=== PATIENT | female | born 1980 | race Caucasian/White ===

== ENCOUNTER → 2017-05-04 | Outpatient (CLI) | payer OTHER | LOC: FIMAGING 07:18 | PROVIDERS: ATTEND Advanced Practice Midwife | DX: O09.512 Supervision of elderly primigravida, second trimester (principal); Z3A.20 20 weeks gestation of pregnancy ==

== ENCOUNTER 2017-06-14 17:42 | Observation (INO) | payer OTHER ==
--- NOTE | 2017-06-14 18:30 | OBPROG ---
Labor Progress Note Assessment/Plan: Assessment:no contractions on monitor speculum exam ffn affirm wet prep negative fhr cat 1 fhr nst reactive at 26 weeks iv placed cervix long thick closed high posterior soft Plan:iv fluids speculum exam ffn affirm exam 06/14/17 18:28 Subjective/Intrapartum Course: 06/14/17 18:27 Began feeling cramping at noon. Regular in timing for long period of time today. noon to 4p today denies leaking, bleeding, cramping. States feeling movement. - SVE Dilation (cm): 0 Effacement (%): 0 Station: -3 Membranes: Intact - Contraction Pattern Assessment Current Contraction Pattern: Irregular - FHR Assessment Romeo FHR (bpm): 135 FHR Pattern Variability: Moderate FHR Category: 1 - Physical Exam General Appearance: WD/WN, alert, no apparent distress Respiratory: chest non-tender, lungs clear, normal breath sounds Cardiac/Chest: regular rate, rhythm Abdomen: normal bowel sounds Extremities: normal range of motion, Dieter's sign (negative bilaterally) DTR- Lower Extremities: Knee (R): 1+, Knee (L): 1+ (no clonus) Skin: normal color, warm/dry Neuro/Psych: no motor/sensory deficits, alert, normal mood/affect, oriented x 3 ICD10 Worksheet Patient Problems: Problems Problem Status Onset Delivery normal Acute
[2017-06-14] MEDS ORDERED: TERBUTALINE SULFATE 1 MG/ML VIAL SC ONE (19:09)
--- NOTE | 2017-06-14 19:17 | GHP ---
[f rep st] HISTORY AND PHYSICAL DATE OF ADMISSION: 06/14/2017 HISTORY OF PRESENT ILLNESS: The patient is a 37-year-old 2, para 1, with an EDC of 8, who comes in at 26 weeks gestational age with complaints of contractions since noon on 06/14/2017. Denies bleeding, leaking. States feeling positive movement. Cramping since noon to when she came into labor and delivery, regular, painful. Was at work, attempted to drink a liter of fluid. States felt better and then contractions came back as she was driving home after work. The patient c alled to [facility] and was instructed to come to labor and delivery. PAST MEDICAL HISTORY: The patient has a history of anemia. PAST SURGICAL HISTORY: Left knee surgery in 1998, tonsillectomy and adenoidectomy at age 7. MAJOR ACCIDENTS: Sports injury, left patella injury in high school. FAMILY HISTORY: Noncontributory. SOCIAL HISTORY: The patient is . Denies tobacco use. Denies drug use. GYNECOLOGICAL HISTORY: Previous LEEP x2. OLI 3 in 2015, OLI 2 in 2004. Previous use of Mirena. Hi story of OCP use. PRESENT HISTORY: The patient is rubella nonimmune, AMA, a previa. Cervical length was don e because of the LEEP x2. PAST HISTORY: Term delivery at 7 pounds 7 ounces. LABS: The patient is A positive, antibody negative. RPR is nonreactive. Rubella is nonimmune. Hep atitis is negative. HIV is negative. Standard panel was negative. TSH was 1.1 on 02/27/2017. Pap, gonorrhea, and chlamydia are negative. Verifi was negative. At this time, the patient has not yet taken the 1-hour GTT. PHYSICAL ASSESSMENT: GENERAL: The patient is awake, alert, oriented x3. LUNGS: Clear bilaterally. ABDOMEN: Bowel sounds are positive in all 4 quadrants. EXTREMITIES: DTRs are 1+ bilaterally. PE LVIC: Cervix long, thick, closed, high, but soft. No presenting part in the pelvis. On admit to labor and delivery, placed on the monitor. No contractions were noted at that time. FFN was collected. Wet prep was negative. Affirm was sent. ALLERGIES: The patient is not allergic to any medications. MEDICATIONS: The only medications the patient is taking are vitamins with DHA. PLAN OF CARE: IV fluids 1 L x1. Wait for FFN results. Consult physician, Dr. Jaylene Avendaño, as need ed for plan of care. /[id number]/MODL
[2017-06-14 19:32] VITALS: BP 117/61; PULSE 74
== END 2017-06-14 22:05 | disposition home or self-care (01) ==
LOC: FLD 17:42
PROVIDERS: ADMIT Advanced Practice Midwife; ATTEND Advanced Practice Midwife
DX: Z34.92 Encounter for supervision of normal pregnancy, unspecified, second trimester (principal); Z3A.26 26 weeks gestation of pregnancy
CPT/HCPCS: G0378 ×2; J3105

== ENCOUNTER 2017-09-01 12:52 | Observation (INO) | payer OTHER ==
--- NOTE | 2017-09-01 15:27 | GHP ---
[f rep st] PREOP HISTORY AND PHYSICAL DATE OF ADMISSION: 09/01/2017 ADMITTING DIAGNOSIS: Intrauterine at 37 and 57 weeks gestation for preeclampsia evaluation and prolonged monitoring. HISTORY OF PRESENT ILLNESS: The patient is a 37-year-old, 2, para 1-0-0-1, with a last menst rual period of 12/10/2016 and an EDC of 09/17/2017, confirmed by an 8-week ultrasound. She has had g ood care at [facility] since registration at 8 weeks gestation. Her risk factors include advanced maternal age. She had normal testing in this and aayush l ultrasound. She has a history of a LEEP x2. She had normal cervical length ultrasounds in the 1st and 2nd trimesters. She had a placenta previa that resolved, and she has developed a placenta previ a that resolved. Over the last 2 weeks, patient has developed some increasing symptoms of preeclamps ia. She has had episodes of severe headaches lasting a couple of days that have waxed and waned in i ntensity over the last few days. Currently, does not have a headache. She has had episodes of tunne l vision and scotomata, which also have waxed and waned somewhat with her headaches. She continues t o have increasing contractions which are increasing in intensity and frequency that have come and chilo e, and she just generally reports not feeling well. She was evaluated at [facility] on and found to have normal blood pressures that ranged 110s-119 over 50s to 60s. She had labs done that were normal and negative for preeclampsia. Platelets were 229. BUN and creatinine are 6 and 0. 6, uric acid 4.8, LDH 383, AST 19, ALT 30. Urine random creatinine was 28.9. Total protein was 16, given a ratio of 0.553. She was evaluated at [facility] today, had continued to have normal blood pressures, had a nonstress test that had a deceleration with contraction and was not reactive. She was sent to Labor and Delivery for prolonged monitoring. Currently, she denies headache or scotomata, just generally i s having painful contractions, very uncomfortable, and feels dizzy and lightheaded and does not feel well. She has some heartburn, but no right upper quadrant pain, and has had good movement sinc e she has been evaluated in Labor and Delivery. She continues to have irregular contractions. No le akage of fluid or vaginal bleeding. OBJECTIVE: Blood pressures here on Labor and Delivery 110/56, 115/69, 116/73, 117/67, and 119/68. F etal heart tones are 130s, reactive, moderate variability, Category I, no decelerations at all. She is precious irregularly. Her cervix was checked, and she is 3, 80%, -2, and baby is cephalic. Th e patient was evaluated here and had an ultrasound. Estimated weight was 3305 g, 94th percenti le. MARY KATE was 10.9, MVP was 3.2. We discussed her signs and symptoms of preeclampsia, as well as the elevated P/C ratio without elevat ed blood pressures or any signs of distress. Because her symptoms are transient and generally feels better now, she is not meeting criteria for induction of labor secondary to preeclampsia, but w e will watch her closely as she is at risk for developing that. The patient will discharge home [facility] with labor precautions, and instructions to call for headache, scotomata, right upper quadrant pain or active labor symptoms or leakage of fluid. She is to be evaluated in the office on Wednesday for a nonstress test and a return OB visit, and if she does not develop signs and symptoms of preeclampsia, she wishes to be delivered by 39 weeks. /[id number]/MODL
== END 2017-09-01 15:10 | disposition home or self-care (01) ==
LOC: FLD 12:52
PROVIDERS: ADMIT Obstetrics & Gynecology; ATTEND Obstetrics & Gynecology
DX: O99.89 Other specified diseases and conditions complicating pregnancy, childbirth and the puerperium (principal); O09.513 Supervision of elderly primigravida, third trimester; Z3A.37 37 weeks gestation of pregnancy
CPT/HCPCS: 76815; G0378

== ENCOUNTER 2017-09-10 06:00 | Inpatient (IN) | payer OTHER ==
[2017-09-10] MEDS ORDERED: OLIVE OIL 118 ML BTL MISC PRN (06:32)
[2017-09-10] MEDS ORDERED: OXYTOCIN 20 UNIT in LR 1,000 ML IV PRN (06:32)
[2017-09-10] MEDS ORDERED: LR 1,000 ML IV PRN ×2 (06:32→09:03)
[2017-09-10] MEDS ORDERED: EPSOM SALT 454 GM TP PRN (06:32)
[2017-09-10] MEDS ORDERED: TERBUTALINE SULFATE 1 MG/ML VIAL IV PRN (06:32)
[2017-09-10] MEDS ORDERED: MISOPROSTOL 200 MCG TAB PR PRN (06:32)
[2017-09-10] MEDS ORDERED: AMPICILLIN SODIUM 1 GM in NS 50 ML IV SCH ×2 (06:45→07:34)
[2017-09-10] MEDS ORDERED: AMPICILLIN SODIUM 2 GM in STERILE WATER INJ 25 ML IV ONE (07:00)
[2017-09-10 07:52] LABS: PLATELET COUNT 239 10^3/uL (150-400)
--- NOTE | 2017-09-10 09:02 | PDGENHP ---
History & Physical Chief Complaint: Elective IOL, 39wks, visual scotomata History of Present Illness: 37 yo presents for elective IOL today at 39w0d. Was seen in clinic earlier this week and althought BP has been normal she was had new visual scotomata, vague FAIR. Discussed w MFM at 37 wks they rec' d NSTs, AFIs and IOL at 39 wks. Overall uncomplicated 2nd - first was son Caren, had a fast but rather traumatic vaginal delivery w/ episiotomy and felt that she had a really rough recovery from that. Very much wanted to avoid episiotomy and . AMA at age 37 and also h/o LEEP x 2 (normal CLUS). Most recent LEEP 03/2016. She did have previa that resolved on subsequent scans - no bleeding. Rubella low-immune. NIPT and standard panel normal - XY male. Pertinent Past, Social, Family History: AMA, H/o LEEP x 2, Rubella low-immune. Mom was HepC pos from blood transfusion and hypothyroid (pt tested and normal TSH Fall 2016) Lab Data & Imaging Review 09/10/17 07:40 WBC 9.19 10^3/uL (3.80-9.50) 09/10/17 07:40 RBC 3.97 10^6/uL (4.18-5.33) L 09/10/17 07:40 Hgb 12.2 g/dL (12.6-16.3) L 09/10/17 07:40 Hct 36.4 % (38.0-47.0) L 09/10/17 07:40 MCV 91.7 fL (81.5-99.8) 09/10/17 07:40 MCH 30.7 pg (27.9-34.1) 09/10/17 07:40 MCHC 33.5 g/dL (32.4-36.7) 09/10/17 07:40 RDW 13.6 % (11.5-15.2) 09/10/17 07:40 Plt Count 239 10^3/uL (150-400) 09/10/17 07:40 MPV 10.6 fL (8.7-11.7) 09/10/17 07:40 Neut % (Auto) 75.9 % (39.3-74.2) H 09/10/17 07:40 Lymph % (Auto) 17.2 % (15.0-45.0) 09/10/17 07:40 Noble % (Auto) 5.2 % (4.5-13.0) 09/10/17 07:40 Eos % (Auto) 1.2 % (0.6-7.6) 09/10/17 07:40 Baso % (Auto) 0.2 % (0.3-1.7) L 09/10/17 07:40 Nucleat RBC Rel Count 0.0 % (0.0-0.2) 09/10/17 07:40 Absolute Neuts (auto) 6.97 10^3/uL (1.70-6.50) H 09/10/17 07:40 Absolute Lymphs (auto) 1.58 10^3/uL (1.00-3.00) 09/10/17 07:40 Absolute Monos (auto) 0.48 10^3/uL (0.30-0.80) 09/10/17 07:40 Absolute Eos (auto) 0.11 10^3/uL (0.03-0.40) 09/10/17 07:40 Absolute Basos (auto) 0.02 10^3/uL (0.02-0.10) 09/10/17 07:40 Absolute Nucleated RBC 0.00 10^3/uL (0-0.01) 09/10/17 07:40 Immature Gran % 0.3 % (0.0-1.1) 09/10/17 07:40 Immature Gran # 0.03 10^3/uL (0.00-0.10) 09/10/17 07:40 Patient ABO/Rh A POSITIVE 09/10/17 07:40 Antibody Screen NEGATIVE 09/10/17 07:40 Blood type A pos, Ab negative, RPR neg, Rubella LOW-IMMUNE, Hep B neg, HIV neg, GC/C neg, GBS POSITIVE Labor Progress Note Subjective/Intrapartum Course: Objective: 09/10/17 07:40 Patient ABO/Rh A POSITIVE 09/10/17 07:40 - SVE Dilation (cm): 3 Effacement (%): 75 Station: -2 (In clinic 09/07/17) Membranes: Intact - Contraction Pattern Assessment Current Contraction Pattern: Irregular - FHR Assessment Romeo FHR (bpm): 130 FHR Pattern Variability: Moderate FHR Category: 1 - AP Antepartum Course: Assessment & Plan Assessment: 37yo at 39w0d here for elective IOL, with recent visual scotomata and sx concerning for pre-eclampsia, but no formal dx. GBS positive. IOL: Ampicillin on admission, will start Pitocin 2 hrs after that, then AROM once in regular pattern. PIH: Will check labs on admission, monitor BP. Rubella Low-immune: Will need MMR PP. A positive, GBS positive.
[2017-09-10] MEDS ORDERED: AMMONIA AROMATIC 1 EACH AMP IH PRN (09:03)
[2017-09-10] MEDS ORDERED: LR 500 ML IV PRN (09:48)
[2017-09-10] MEDS ORDERED: OXYTOCIN 30 UNIT in NS 500 ML IV SCH (10:00)
[2017-09-10] MEDS ORDERED: TERBUTALINE SULFATE 1 MG/ML VIAL ONE (10:05)
[2017-09-10] MEDS ORDERED: OLIVE OIL 118 ML BTL ONE (10:05)
[2017-09-10] MEDS ORDERED: AMMONIA AROMATIC 1 EACH AMP IH ONE (10:05)
[2017-09-10] MEDS ORDERED: LIDOCAINE 1% 300 MG/30 ML SDV ONE (10:05)
[2017-09-10] MEDS ORDERED: OXYTOCIN 10 UNIT/ML VIAL ONE (10:06)
[2017-09-10] MEDS: AMPICILLIN SODIUM 1 GM in STERILE WATER INJ 15 ML IV SCH ×3 (12:33→20:46)
--- NOTE | 2017-09-10 18:54 | OBDEL ---
Info Type: Vaginal Presentation at Delivery: Vertex L&D Analgesia/Anesthesia Type: None, Local GBS+: Yes (Multiple doses of Ampicillin) Antibiotic Used for + GBS: Ampicillin Intrapartum Medications: Generic Name Dose Route Start Last Admin Trade Name Freq PRN Reason Stop Dose Admin Ampicillin Sodium 1 gm/ 15 mls @ 60 mls/hr 09/10/17 10:00 09/10/17 12:33 Sterile Water IV 10/10/17 09:59 15 mls Q4 JOSE ALBERTO Administration Oxytocin 30 unit/ Sodium 503 mls @ 0 mls/hr 09/10/17 10:00 09/10/17 10:12 Chloride IV 03/09/18 09:59 503 mls CONT JOSE ALBERTO Administration Protocol Per Protocol Discontinued Medications Generic Name Dose Route Start Last Admin Trade Name Freq PRN Reason Stop Dose Admin Ampicillin Sodium 1 gm/ Sodium 50 mls @ 100 mls/hr 09/10/17 06:45 09/10/17 13 :52 Chloride IV 09/10/17 07:44 Not Given Q30M JOSE ALBERTO Protocol Ampicillin Sodium 2 gm/ 25 mls @ 100 mls/hr 09/10/17 07:00 09/10/17 08:11 Sterile Water IV 09/10/17 07:14 25 mls ONCE ONE Administration - Hospital Course Intrapartum: Intrapartum Induction started with abx, then 2 hrs later Pitocin. 3cm initially. AROM at 4cm. Made fast progress to complete over 3-4 hours. Ultimately pushed for about 90 minutes. A lot of back pain with pushing. Indications for Delivery: Elective (Concern for PIH sx without diagnosis of PIH) Vaginal Delivery - Delivery Provider Delivery Physician/CNM: Mihir Hand - Labor and Delivery Onset of Contractions Type: Augmented Rupture of Membranes Type: Artificial Amniotic Fluid Color: Clear Non-surgical Procedures: Amniotomy Laceration: 2nd Degree Repair: 3-0 Vaginal Sponge Count Correct: Yes Vaginal Needle Count Correct: Yes Vaginal Sweep Performed: Yes EBL: 300 Delivery Events: None Delivery Comment: Induction began with Ampicillin. 2 hours later began Pitocin. AROM with clear fluid at 4cm. Made normal/fast progress to complete after 3-4 hours. No epidural. Reassuring tracing during stage I. Pushed for approximately 90 minutes with baby in direct OA position. Ultimately delivered over second degree perineal lac. Head delivered easily, left shoulder anterior. Baby up to mom's chest. Mouth suctioned, delayed cord clamping for approximately 2 minutes. Cord clamped and cut. Placenta did not deliver spontaneously for 30 minutes and I needed to put substantial traction on the cord, ultimately delivered completely intact without my having to reach up and manually extract. Inspected on the back table, complete/intact. 2nd degree lac repaired with 3- 0 vicryl after injecting local. Mom and baby ultimately doing well in room. Baby not yet weighed. Cord Gases: Not collected - Medications Labor Augmentation/Induction Methods Used: Pitocin Edmond Data VASQUEZ: 09/17/17 Gestational Age: 39 week(s) and 0 day(s) Romeo Delivery Date: 09/10/17 Delivery Time: 18:01 Sex of : Male (Reinier Perez) Score (1 Min): 8 Score (5 Min): 9 ICD10 Worksheet Patient Problems: Problems Problem Status Onset AMA (advanced maternal age) multigravida 35+ Acute Encounter for induction of labor Acute H/O LEEP Acute Positive GBS test Acute Vaginal delivery Acute - ICD10 Problem Qualifiers (1) Encounter for induction of labor (2) Vaginal delivery (3) AMA (advanced maternal age) multigravida 35+ (4) H/O LEEP (5) Positive GBS test
[2017-09-10] MEDS: IBUPROFEN 600 MG TAB PO PRN (19:14)
[2017-09-10] MEDS ORDERED: DOCUSATE SODIUM 100 MG CAP PO PRN (20:57)
[2017-09-10] MEDS ORDERED: MAGNESIUM HYDROXIDE 30 ML UDCUP PO PRN (21:01)
[2017-09-10] MEDS ORDERED: LACTULOSE 20 GM/30 ML UDCUP PO PRN (21:01)
[2017-09-10] MEDS ORDERED: HYDROCODONE/APAP 5/325 TAB PO PRN (21:01)
[2017-09-10] MEDS ORDERED: POLYETHYLENE GLYCOL 3350 17 GM PKT PO PRN (21:01)
[2017-09-10] MEDS ORDERED: BISACODYL 10 MG SUPP PR PRN (21:01)
[2017-09-10] MEDS ORDERED: SIMETHICONE 80 MG TAB CHEW PO PRN (21:01)
[2017-09-10] MEDS ORDERED: ACETAMINOPHEN 325 MG TAB PO PRN (21:01)
[2017-09-10] MEDS ORDERED: HYDROCORTISONE 0.5% CREAM TP PRN (21:01)
[2017-09-11] MEDS: SENNOSIDES/DOCUSATE SODIUM TAB PO SCH ×3 (01:27→21:07)
[2017-09-11] MEDS: IBUPROFEN 600 MG TAB PO PRN ×4 (01:53→21:07)
[2017-09-11] MEDS ORDERED: MEASLES,MUMPS&RUBELLA VACC/PF 0.5 ML VIAL SC ONE ×2 (08:21→19:30)
[2017-09-11] MEDS: IRON POLYSAC/IRON HEME 28 MG TAB PO SCH ×2 (08:53→21:07)
--- NOTE | 2017-09-11 10:35 | OBPP ---
Progress Note Assessment/Plan: Assessment: PPD 1 s/p +GBS Plan: routine care 09/11/17 10:32 Subjective/ Course: 09/11/17 10:33 Pt doing well. Strong cramps with BF - tolerable with ibu. bottom not too sore. urinating fine. bld is reduced quite a bit. Baby is latching well. Objective: 09/11/17 06:25 Patient ABO/Rh A POSITIVE 09/10/17 07:40 Temp Pulse Resp BP Pulse Ox 36.6 C 89 17 114/72 96 09/11/17 08:00 09/11/17 08:00 09/11/17 08:00 09/11/17 08:00 09/11/17 08:00 Uterine Position/Fundal Height: Umbilicus -1 Uterine Tone: Firm Physical Exam - Physical Exam Abdomen: non-tender, soft, other (FF at umb -1) Extremities: non-tender, pedal edema (mild) Skin: normal color, warm/dry Neuro/Psych: alert, normal mood/affect
[2017-09-11 19:31] VITALS: RESP 16; O2SAT 95
[2017-09-12] MEDS: IBUPROFEN 600 MG TAB PO PRN ×2 (04:03→10:12)
[2017-09-12] MEDS: IRON POLYSAC/IRON HEME 28 MG TAB PO SCH (09:17)
[2017-09-12] MEDS: SENNOSIDES/DOCUSATE SODIUM TAB PO SCH (10:36)
[2017-09-12 10:46] VITALS: BP 110/66; PULSE 81; TEMP 97.5
[2017-09-12] MEDS ORDERED: FLU VACC QS 2017-18 (3YR+)/PF 0.5 ML SYR (FLUARIX QUAD) IM ONE ×2 (11:37→14:30)
--- NOTE | 2017-09-12 13:10 | OBGCSDC ---
General Delivery Information - General Info : 2 Para: 2 Abortions: 0 Type: Vaginal L&D Analgesia/Anesthesia Type: Local Admission Date: 09/10/17 Labs: Patient ABO/Rh A POSITIVE 09/10/17 07:40 Hct 30.8 % (38.0-47.0) L 09/11/17 06:25 - Hospital Course Antepartum: Antepartum Intrapartum: Intrapartum Induction started with abx, then 2 hrs later Pitocin. 3cm initially. AROM at 4cm. Made fast progress to complete over 3-4 hours. Ultimately pushed for about 90 minutes. A lot of back pain with pushing. : 09/11/17 10:33 Pt doing well. Strong cramps with BF - tolerable with ibu. bottom not too sore. urinating fine. bld is reduced quite a bit. Baby is latching well. Vaginal - Delivery Provider Delivery Physician/CNM: Mihir Hand - Diagnosis Labor: Augmented Rupture of Membranes Type: Artificial Amniotic Fluid Color: Clear Laceration: 2nd Degree Repair: 3-0 Delivery Events: None - Procedures Non-surgical Procedures: Amniotomy - Delivery Non-surgical Procedures: Amniotomy EBL: 300 Data VASQUEZ: 09/17/17 Gestational Age: 39 week(s) and 2 day(s) Romeo Delivery Date: 09/10/17 Delivery Time: 18:01 Sex of : Male Score (1 Min): 8 Score (5 Min): 9
--- NOTE | 2017-09-12 13:10 | OBPP ---
Progress Note Assessment/Plan: Assessment: Plan: Subjective/ Course: 09/11/17 10:33 Pt doing well. Strong cramps with BF - tolerable with ibu. bottom not too sore. urinating fine. bld is reduced quite a bit. Baby is latching well. Objective: 09/11/17 06:25 Patient ABO/Rh A POSITIVE 09/10/17 07:40 Temp Pulse Resp BP Pulse Ox 36.4 C 81 16 110/66 95 09/12/17 08:30 09/12/17 08:30 09/12/17 08:30 09/12/17 08:30 09/11/17 19:31
== END 2017-09-12 14:00 | disposition home or self-care (01) | DRG 775 ==
LOC: FLD 06:22 → FOB 20:19
PROVIDERS: ADMIT Advanced Practice Midwife; ATTEND Obstetrics & Gynecology
DX: O70.1 Second degree perineal laceration during delivery (principal); O99.824 Streptococcus B carrier state complicating childbirth; Z78.9 Other specified health status; Z87.410 Personal history of cervical dysplasia; Z23 Encounter for immunization; Z3A.39 39 weeks gestation of pregnancy; Z37.0 Single live birth
CPT/HCPCS: G0008; J0290; J2590; J3105